=== PATIENT | female | born 1990 | race Asian ===

== ENCOUNTER 2022-04-08 18:29 | Emergency (ER) | payer OTHER ==
[~2022-04-08] VITALS: Ht 154.9 cm; Wt 85.0 kg
[2022-04-08 19:19] LABS: COVID AG,FIA SOURCE NASOPHARYNGEAL
[2022-04-08 20:00] VITALS: BP 147/69
== END 2022-04-08 19:48 | disposition home or self-care (01) ==
LOC: EMS 18:29
DX: R51.9 Headache, unspecified (principal); J02.9 Acute pharyngitis, unspecified; Z20.822 Contact with and (suspected) exposure to COVID-19
CPT/HCPCS: 87426; 99283; C9803; U0003